=== PATIENT | female | born 1970 | race Caucasian/White ===

== ENCOUNTER 2020-10-25 16:39 | Observation (INO) | payer OTHER ==
[~2020-10-25] VITALS: Ht 154.9 cm; Wt 109.4 kg
[~2020-10-25 16:39] MED LIST: ADMELOG SO100 UNIT/1 SC; ATORVASTATIN CA80 MG PO; CEROVITE ADVAN1 EACH PO; FENOFIBRATE160 MG PO; GABAPENTIN800 MG PO; HYDROCODON-ACE1 EAC6 PO; LISINOPRIL20 MG PO; NAPROXEN500 MG PO; OMEPRAZOLE20 MG PO; OZEMPIC1 MG/0.75 SQ; ROPINIROLE HCL2 MG PO; TOUJEO MAX300 UNIT/1 SC; TOUJEO SOLO INJ 300 SC
[2020-10-25 18:23] LABS: HEMOGLOBIN 11.2 gm/dl (12.3-15.3); RED BLOOD COUNT 4.11 M/UL (4.00-5.10); WHITE BLOOD COUNT 10.3 K/UL (4.5-11.0)
[2020-10-25 18:43] LABS: BUN/CREATININE RATIO 31 (0-10)
[2020-10-25] MEDS ORDERED: BACLOFEN10 MG PO (23:43)
[2020-10-25] MEDS ORDERED: MOBIC7.5 MG PO (23:46)
--- NOTE | 2020-10-26 16:02 | NUR ---
1530: RN CALLED [facility] TO OBTAIN CURRENT WOUND CARE ORDERS FOR PATIENT. ORDERS NOTED AND WOUND CARE PERFORMED, PATIENT TOLERATED WELL.
[2020-10-27 05:06] LABS: HEMOGLOBIN 11.1 gm/dl (12.3-15.3); RED BLOOD COUNT 4.05 M/UL (4.00-5.10)
[2020-10-27 05:10] LABS: WHITE BLOOD COUNT 7.2 K/UL (4.5-11.0)
[2020-10-27 05:24] LABS: BUN/CREATININE RATIO 31 (0-10)
[2020-10-27] MEDS ORDERED: CEPHALEXIN500 MG PO (10:37)
== END 2020-10-27 12:03 | disposition home or self-care (01) ==
LOC: ER1 16:39 → CDU 22:15 → MED SURG 4 22:15
PROVIDERS: Internal Medicine; Physician Assistant Medical; ADMIT Internal Medicine
DX: R07.89 Other chest pain (principal); E11.9 Type 2 diabetes mellitus without complications; I11.0 Hypertensive heart disease with heart failure; I50.9 Heart failure, unspecified; N39.0 Urinary tract infection, site not specified; R10.10 Upper abdominal pain, unspecified; G89.29 Other chronic pain; G25.81 Restless legs syndrome; S31.000A Unspecified open wound of lower back and pelvis without penetration into retroperitoneum, initial encounter; R77.8 Other specified abnormalities of plasma proteins; I25.10 Atherosclerotic heart disease of native coronary artery without angina pectoris; E66.01 Morbid (severe) obesity due to excess calories; E78.5 Hyperlipidemia, unspecified; F17.210 Nicotine dependence, cigarettes, uncomplicated; Z98.61 Coronary angioplasty status; Z86.74 Personal history of sudden cardiac arrest; Z86.19 Personal history of other infectious and parasitic diseases; Z68.42 Body mass index [BMI] 45.0-49.9, adult; Z88.4 Allergy status to anesthetic agent; Z88.5 Allergy status to narcotic agent; Z88.0 Allergy status to penicillin; Z79.4 Long term (current) use of insulin; Z79.899 Other long term (current) drug therapy; X58.XXXA Exposure to other specified factors, initial encounter; Z20.822 Contact with and (suspected) exposure to COVID-19
CPT/HCPCS: 36415; 71045; 80048; 80053; 81001; 82150; 82550; 82553; 82962; 83605; 83690; 83735; 83874; 84100; 84484; 85025; 85027; 86140; 93005; 96372; 96374; 96375; 99285; A6212; G0378; J1650; J2270; J2405; J7030; Q9967; U0002

== ENCOUNTER 2021-08-04 16:01 | Inpatient (IN) | payer OTHER ==
[~2021-08-04] VITALS: Ht 154.9 cm; Wt 119.7 kg
[~2021-08-04 16:01] MED LIST changes: -ADMELOG SO100 UNIT/1 SC; +ATORVASTATIN CA10 MG PO; -ATORVASTATIN CA80 MG PO; +BACLOFEN10 MG PO; +CEPHALEXIN500 MG PO; -CEROVITE ADVAN1 EACH PO; +CERTAVITE-ANTI1 EACH PO; -FENOFIBRATE160 MG PO; +HUMALOG100 UNIT/3 SQ; +HYDROCODON-ACE1 EAC2 PO; -HYDROCODON-ACE1 EAC6 PO; +MOBIC15 MG PO; -OMEPRAZOLE20 MG PO; +OMEPRAZOLE40 MG PO; -TOUJEO MAX300 UNIT/1 SC; +TOUJEO MAX300 UNIT/1 SQ; +TRICOR 145 MG145 MG PO
[2021-08-04 18:30] LABS: HEMOGLOBIN 11.1 gm/dl (12.3-15.3); RED BLOOD COUNT 4.23 M/UL (4.00-5.10); WHITE BLOOD COUNT 20.3 K/UL (4.5-11.0)
[2021-08-04 19:50] LABS: BUN/CREATININE RATIO 24 (0-10)
[2021-08-05 06:07] LABS: HEMOGLOBIN 9.7 gm/dl (12.3-15.3)
[2021-08-05 06:31] LABS: RED BLOOD COUNT 3.77 M/UL (4.00-5.10)
[2021-08-05 06:37] LABS: BUN/CREATININE RATIO 23 (0-10)
[2021-08-05] MEDS ORDERED: CLINDAMYCIN HC300 MG PO (11:26)
[2021-08-05] MEDS ORDERED: METOPROLOL SUC100 MG PO (11:27)
[2021-08-05] MEDS ORDERED: AMLODIPINE BESYL5 MG PO (11:27)
[2021-08-05] MEDS ORDERED: AMITRIPTYLINE H10 MG PO (11:28)
[2021-08-05] MEDS ORDERED: PHENERGAN 25 MG25 M1 PO (11:28)
[2021-08-05] MEDS ORDERED: FUROSEMIDE20 MG PO (11:29)
[2021-08-05] MEDS ORDERED: ISOSORBIDE MONO30 MG PO (11:30)
[2021-08-05] MEDS ORDERED: POTASSIUM CHLO10 ME1 PO (11:30)
[2021-08-05] MEDS ORDERED: VITAMIN D325 MC6 PO (11:31)
[2021-08-05] MEDS ORDERED: OXYBUTYNIN CHLOR5 MG PO (11:31)
[2021-08-06 05:44] LABS: HEMOGLOBIN 9.2 gm/dl (12.3-15.3); RED BLOOD COUNT 3.56 M/UL (4.00-5.10)
[2021-08-07 06:48] LABS: HEMOGLOBIN 9.4 gm/dl (12.3-15.3); RED BLOOD COUNT 3.78 M/UL (4.00-5.10)
[2021-08-08 04:21] LABS: HEMOGLOBIN 8.6 gm/dl (12.3-15.3); RED BLOOD COUNT 3.41 M/UL (4.00-5.10); WHITE BLOOD COUNT 13.3 K/UL (4.5-11.0)
[2021-08-08 05:30] LABS: BUN/CREATININE RATIO 28 (0-10)
[2021-08-09 03:11] LABS: HEMOGLOBIN 8.3 gm/dl (12.3-15.3); RED BLOOD COUNT 3.31 M/UL (4.00-5.10); WHITE BLOOD COUNT 15.1 K/UL (4.5-11.0)
[2021-08-09 03:27] LABS: BUN/CREATININE RATIO 22 (0-10)
[2021-08-09] MEDS ORDERED: LEVOFLOXACIN500 MG PO (13:54)
[2021-08-09] MEDS ORDERED: DOXYCYCLINE HY100 M2 PO (13:54)
[2021-08-09] MEDS ORDERED: LANTUS INS100 UTS/M1 SC (13:54)
[2021-08-09] MEDS ORDERED: ACETAMINOPHEN325 MG PO (13:54)
== END 2021-08-09 13:56 | DRG 264 ==
LOC: ER1 16:01 → MED SURG 4 21:48 → CDU 21:48 → MED SURG 4 08-05 00:30
PROVIDERS: Internal Medicine; Physician Assistant; Surgery; ADMIT Internal Medicine
PROC: 0JB80ZZ Excision of Abdomen Subcutaneous Tissue and Fascia, Open Approach (ICD-10-PCS; 2021-08-04)
PROC: 3E03329 Introduction of Other Anti-infective into Peripheral Vein, Percutaneous Approach (ICD-10-PCS; principal; 2021-08-04 22:52)
DX: E11.52 Type 2 diabetes mellitus with diabetic peripheral angiopathy with gangrene (principal); M72.6 Necrotizing fasciitis; I42.9 Cardiomyopathy, unspecified; I96 Gangrene, not elsewhere classified; Z68.43 Body mass index [BMI] 50.0-59.9, adult; L02.211 Cutaneous abscess of abdominal wall; N17.9 Acute kidney failure, unspecified; Z20.822 Contact with and (suspected) exposure to COVID-19; G25.81 Restless legs syndrome; E11.65 Type 2 diabetes mellitus with hyperglycemia; I10 Essential (primary) hypertension; F17.210 Nicotine dependence, cigarettes, uncomplicated; T42.6X5A Adverse effect of other antiepileptic and sedative-hypnotic drugs, initial encounter; I95.2 Hypotension due to drugs; B96.89 Other specified bacterial agents as the cause of diseases classified elsewhere; I25.10 Atherosclerotic heart disease of native coronary artery without angina pectoris; E66.01 Morbid (severe) obesity due to excess calories; J44.9 Chronic obstructive pulmonary disease, unspecified; Z90.49 Acquired absence of other specified parts of digestive tract; Z90.89 Acquired absence of other organs; Z95.1 Presence of aortocoronary bypass graft; Z98.890 Other specified postprocedural states; Z88.0 Allergy status to penicillin; Z88.8 Allergy status to other drugs, medicaments and biological substances; Z82.49 Family history of ischemic heart disease and other diseases of the circulatory system; Z79.4 Long term (current) use of insulin; Z79.899 Other long term (current) drug therapy
CPT/HCPCS: 36415; 71045; 80048; 80053; 80202; 81001; 82009; 82962; 83605; 83735; 83880; 85025; 85027; 86140; 87040; 87070; 87205; 94640; 94664; 94760; C9113; J1100; J1170; J1650; J2001; J2185; J2250; J2270; J2405; J2543; J2704; J3010; J3370; J7030; J7070; J7120; Q9967; U0002

== ENCOUNTER 2021-09-30 14:18 | Inpatient (IN) | payer OTHER ==
[~2021-09-30] VITALS: Ht 157.5 cm; Wt 112.0 kg
[~2021-09-30 14:18] MED LIST changes: +ACETAMINOPHEN325 MG PO; +AMLODIPINE BESYL5 MG PO; +CLINDAMYCIN HC300 MG PO; +DOXYCYCLINE HY100 M2 PO; -HUMALOG100 UNIT/3 SQ; +ISOSORBIDE MONO30 MG PO; +LANTUS INS100 UTS/M1 SC; +LEVOFLOXACIN500 MG PO; +METOPROLOL SUC100 MG PO; +OXYBUTYNIN CHLOR5 MG PO; +PHENERGAN 25 MG25 M1 PO; +VITAMIN D325 MC6 PO
[2021-09-30 16:56] LABS: HEMOGLOBIN 10.8 gm/dl (12.3-15.3); RED BLOOD COUNT 4.25 M/UL (4.00-5.10); WHITE BLOOD COUNT 9.8 K/UL (4.5-11.0)
[2021-10-01] MEDS ORDERED: HUMALOG100 UNIT/3 SQ (00:31)
[2021-10-01 05:12] LABS: HEMOGLOBIN 10.9 gm/dl (12.3-15.3); RED BLOOD COUNT 4.29 M/UL (4.00-5.10)
[2021-10-01 05:21] LABS: WHITE BLOOD COUNT 5.6 K/UL (4.5-11.0)
[2021-10-01] MEDS ORDERED: SULFAMETHOXAZO1 EACH PO (10:30)
[2021-10-01] MEDS ORDERED: NITROGLYCERIN0.4 MG SL (10:31)
[2021-10-01] MEDS ORDERED: VITAMIN D21250 MCG PO (10:32)
[2021-10-01] MEDS ORDERED: METOPROLOL SUCC50 MG PO (10:35)
[2021-10-01] MEDS ORDERED: ROPINIROLE HCL2 MG PO (10:37)
[2021-10-01] MEDS ORDERED: AMITRIPTYLINE H10 MG PO (11:28)
[2021-10-01] MEDS ORDERED: FUROSEMIDE20 MG PO (11:29)
[2021-10-01] MEDS ORDERED: POTASSIUM CHLO10 ME1 PO (11:30)
[2021-10-05 06:44] LABS: BUN/CREATININE RATIO 22 (0-10)
[2021-10-07 06:21] LABS: BUN/CREATININE RATIO 29 (0-10)
[2021-10-07] MEDS ORDERED: LEVOFLOXACIN750 MG PO (12:12)
== END 2021-10-07 13:50 | disposition home or self-care (01) | DRG 393 ==
LOC: ER1 14:18 → CDU 20:48 → MED SURG 4 20:48
PROVIDERS: Emergency Medicine; Internal Medicine; ADMIT Internal Medicine
DX: K61.1 Rectal abscess (principal); L89.154 Pressure ulcer of sacral region, stage 4; N30.00 Acute cystitis without hematuria; Z16.12 Extended spectrum beta lactamase (ESBL) resistance; I42.9 Cardiomyopathy, unspecified; Z68.41 Body mass index [BMI] 40.0-44.9, adult; Z20.822 Contact with and (suspected) exposure to COVID-19; B96.1 Klebsiella pneumoniae [K. pneumoniae] as the cause of diseases classified elsewhere; E11.65 Type 2 diabetes mellitus with hyperglycemia; I10 Essential (primary) hypertension; G25.81 Restless legs syndrome; I25.10 Atherosclerotic heart disease of native coronary artery without angina pectoris; F17.210 Nicotine dependence, cigarettes, uncomplicated; E66.01 Morbid (severe) obesity due to excess calories; Z88.0 Allergy status to penicillin; Z88.5 Allergy status to narcotic agent; Z95.1 Presence of aortocoronary bypass graft; Z79.899 Other long term (current) drug therapy; Z90.49 Acquired absence of other specified parts of digestive tract; Z98.890 Other specified postprocedural states; Z83.3 Family history of diabetes mellitus; Z79.4 Long term (current) use of insulin
CPT/HCPCS: 36415; 72193; 80048; 80053; 81001; 82803; 82962; 83605; 83690; 83735; 83880; 84100; 84703; 85025; 85610; 85730; 87040; 87077; 87086; 87186; 94640; 94664; 96365; 96366; 96374; 96375; 96376; 99284; G0378; J0610; J1200; J1650; J1956; J2020; J2185; J3370; J7030; J7070; Q9967; U0002